=== PATIENT | female | born 1965 | race Caucasian/White ===

== ENCOUNTER 2025-07-08 07:08 | Outpatient (CLI) | payer OTHER | END 2025-07-08 07:09 | disposition home or self-care (01) | LOC: CSHULT 07:08 | PROVIDERS: ATTEND Internal Medicine | DX: D50.9 Iron deficiency anemia, unspecified (principal); K74.60 Unspecified cirrhosis of liver; I85.00 Esophageal varices without bleeding; R11.2 Nausea with vomiting, unspecified; R18.8 Other ascites; R16.1 Splenomegaly, not elsewhere classified | CPT/HCPCS: 76705 ==